=== PATIENT | female | born 1950 | race Caucasian/White ===

== ENCOUNTER 2020-06-08 10:32 | Emergency (ER) | payer OTHER ==
[2020-06-08 14:49] LABS: Absolute Lymphocytes (CBC) 0.9 K/uL (0.7-4.9); Basophils % 0.5 % (0-1.3); Hematocrit 40.1 % (36.0-45.0); Lymphocytes % 13.9 % (15.3-44.8); MPV 8.9 fL (7.6-11.3); RBC Red Blood Cell Count 4.31 M/uL (3.86-4.86)
[2020-06-08 15:18] LABS: AST/SGOT 198 U/L (15-37); Albumin 3.1 g/dL (3.4-5.0); Alkaline Phosphatase 499 U/L (45-117); BUN Blood Urea Nitrogen 15 mg/dL (7-18); Bicarbonate 28 mmol/L (21-32); Bilirubin Direct 6.9 mg/dL (0-0.2); Bilirubin Total 8.1 mg/dL (0.2-1.0); Glucose Level 109 mg/dL (74-106); Lipase 144 U/L (73-393); Potassium 3.2 mmol/L (3.5-5.1); Protein, Total 7.5 g/dL (6.4-8.2); Sodium Level 141 mmol/L (136-145)
[2020-06-08 15:21] LABS: ALT/SGPT 316 U/L (12-78)
--- NOTE | 2020-06-08 16:20 | RAD REPORT ---
EXAM DESCRIPTION: CT - Abdomen Pelvis W Contrast - 06/08/2020 4:04 pm CLINICAL HISTORY: Abdominal pain/elevated liver function test enzymes COMPARISON: none. TECHNIQUE: Computed axial tomography of the abdomen pelvis was obtained. 100 cc Isovue-300 was admin istered intravenously. Oral contrast was not requested which limits evaluation of bowel. All CT scans are performed using dose optimization technique as appropriate and may include automated exposure control or mA/KV adjustment according to patient size. FINDINGS: A 33 millimeter pancreatic head mass. The common bile duct is dilated. There is moderate d ilatation of the intrahepatic biliary tree. The more distal pancreas appears atrophic with mild dilat ation of pancreatic duct. Gallbladder is distended. Spleen, adrenals kidneys appear unremarkable. No evidence diverticulitis. No omental/mesenteric nodules IMPRESSION: A 33 millimeter pancreatic mass probably neoplasm. The common bile duct is obstructed.
--- NOTE | 2020-06-08 16:47 | ER ---
Nurse's Notes [facility] Name: Valarie Morris Age: 69 yrs Sex: Female : 1950 Arrival Date: 06/08/2020 Time: 10:39 Bed 14 Private MD: Diagnosis: Pancreatic Head Mass;Obstruction of Common Bile Duct;Abnormal results of liver function studies Presentation: 06/08 10:52 Chief complaint: Patient states: "I started with itching all over and then I had aa5 diarrhea for about 4 days but it went away and I haven't had diarrhea for a couple of days". Pt reports generalized weakness and decreased appetite. 10:52 Coronavirus screen: At this time, the client does not indicate any symptoms associated aa5 with coronavirus-19. Ebola Screen: Patient negative for fever greater than or equal to 101.5 degrees Fahrenheit, and additional compatible Ebola Virus Disease symptoms. Initial Sepsis Screen: Does the patient meet any 2 criteria? No. Patient's initial sepsis screen is negative. Does the patient have a suspected source of infection? No. Patient's initial sepsis screen is negative. Risk Assessment: Do you want to hurt yourself or someone else? Patient reports no desire to harm self or others. Onset of symptoms was May 2020. 10:52 Acuity: LAN 3 aa5 10:52 Method Of Arrival: Ambulatory aa5 Historical: - Allergies: 10:57 Band-Aid; aa5 - PMHx: 10:57 None; aa5 - PSHx: 10:57 Tubal ligation; skin cancer; aa5 - Immunization history:: Client reports receiving the 2nd dose of the Covid vaccine, Date received: June 07, 2020. - Social history:: Smoking status: Patient denies any tobacco usage or history of. Screenin:50 Abuse screen: Denies threats or abuse. Denies injuries from another. Nutritional ca1 screening: No deficits noted. Tuberculosis screening: No symptoms or risk factors identified. Fall Risk IV access (20 points). Assessment: 13:50 General: Appears in no apparent distress. comfortable, Behavior is calm, cooperative, ca1 appropriate for age. Pain: Denies pain. Neuro: Level of Consciousness is awake, alert, obeys commands. Cardiovascular: Heart tones S1 S2 present Capillary refill < 3 seconds Patient's skin is warm and dry. Respiratory: Airway is patent Respiratory effort is even, unlabored, Respiratory pattern is regular, symmetrical, Breath sounds are clear bilaterally. GI: Abdomen is round non-distended, Bowel sounds present X 4 quads. Abd is soft and non tender X 4 quads. Reports diarrhea, for 3 - 4 days, but has not had diarrhea in the last 2 days. : No signs and/or symptoms were reported regarding the genitourinary system. EENT: No signs and/or symptoms were reported regarding the EENT system. Derm: Skin is intact, is healthy with good turgor, Skin is dry, Skin is icteric, jaundiced, Skin temperature is warm. Musculoskeletal: Circulation, motion, and sensation intact. Capillary refill < 3 seconds. 15:09 Reassessment: Patient appears in no apparent distress at this time. Patient and/or ca1 family updated on plan of care and expected duration. Pain level reassessed. Patient is alert, oriented x 3, equal unlabored respirations, skin warm/dry/pink. 16:18 Reassessment: Patient appears in no apparent distress at this time. Patient and/or ca1 family updated on plan of care and expected duration. Pain level reassessed. Patient is alert, oriented x 3, equal unlabored respirations, skin warm/dry/pink. 17:20 Reassessment: Patient appears in no apparent distress at this time. Patient and/or ca1 family updated on plan of care and expected duration. Pain level reassessed. Patient is alert, oriented x 3, equal unlabored respirations, skin warm/dry/pink. 18:24 Reassessment: Patient appears in no apparent distress at this time. Patient and/or ca1 family updated on plan of care and expected duration. Pain level reassessed. Patient is alert, oriented x 3, equal unlabored respirations, skin warm/dry/pink. 18:49 Reassessment: Called for report. Receiving facility requested a call back after shift ca1 change at 191. Vital Signs: 10:52 BP 152 / 96; Pulse 77; Resp 18 S; Temp 98.0(O); Pulse Ox 100% on R/A; Weight 80.74 kg aa5 (R); Height 5 ft. 4 in. (162.56 cm) (R); Pain 0/10; 15:09 BP 113 / 55; Pulse 55; Resp 16 S; Pulse Ox 100% on R/A; ca1 16:19 BP 147 / 58; Pulse 61; Resp 17 S; Pulse Ox 100% on R/A; ca1 17:00 BP 149 / 88; Pulse 77; Resp 16 S; Pulse Ox 100% on R/A; ca1 18:00 BP 136 / 80; Pulse 65; Resp 16 S; Pulse Ox 100% on R/A; ca1 19:00 BP 118 / 59; Pulse 65; Resp 16; Pulse Ox 96% ; sf 10:52 Body Mass Index 30.55 (80.74 kg, 162.56 cm) aa5 ED Course: 10:39 Patient arrived in ED. mr 10:52 Arm band placed on. aa5 10:55 Triage completed. aa5 13:44 Lai Bean PA is PHCP. cp 13:44 Gus Shah MD is Attending Physician. cp 13:46 Tahira Alcala, SARAH is Primary Nurse. ca1 13:50 Patient has correct armband on for positive identification. Bed in low position. Call ca1 light in reach. Side rails up X 1. Pulse ox on. NIBP on. 13:50 Warm blanket given. ca1 14:28 Initial lab(s) drawn, by dc, sent to lab. Inserted saline lock: 20 gauge in left ca1 antecubital area, using aseptic technique. Blood collected. 16:29 Hepatitis Panel Sent. ca1 20:12 No provider procedures requiring assistance completed. Patient transferred, IV remains sf in place. Administered Medications: 17:06 Drug: NS 0.9% 500 ml Route: IV; Rate: bolus; Site: left antecubital; ca1 18:52 Follow up: Response: No adverse reaction; IV Status: Completed infusion; IV Intake: ca1 500ml 20:08 Follow up: IV Status: Completed infusion; IV Intake: 500ml sf 17:07 Drug: Potassium Effervescent Tablet 50 mEq Route: PO; ca1 18:52 Follow up: Response: No adverse reaction ca1 Intake: 18:52 IV: 500ml; Total: 500ml. ca1 20:08 IV: 500ml; Total: 1000ml. sf Outcome: 16:46 ER care complete, transfer ordered by . cp 20:12 Transferred by ground EMS to [facility], Transfer form completed. sf X-rays sent w/ patient. 20:12 Condition: stable 20:12 Instructed on the need for transfer. 21:03 Patient left the ED. sf Signatures: Liane Orellana Talon, Court, RN RN aa5 Lai Bean PA PA cp Acob, Cheryl RN RN ca1 Rajesh Jessica RN RN sf
--- NOTE | 2020-06-08 16:47 | EDPHYS ---
Physician Documentation [facility] Name: Valarie Morris Age: 69 yrs Sex: Female : 1950 Arrival Date: 06/08/2020 Time: 10:39 Bed 14 Private MD: ED Physician Gus Shah HPI: 06/08 13:58 This 69 yrs old Female presents to ER via Ambulatory with complaints of cp Diarrhea, Itching. 13:59 generalized itching. Onset: The symptoms/episode began/occurred 1 week(s) ago. Severity cp of symptoms: in the emergency department the symptoms are unchanged despite home interventions, has been applying OTC hydrocortisone cream. Patient denies food allergies, denies change in soaps/detergents, denies any recent change in medications. Historical: - Allergies: 10:57 Band-Aid; aa5 - PMHx: 10:57 None; aa5 - PSHx: 10:57 Tubal ligation; skin cancer; aa5 - Immunization history:: Client reports receiving the 2nd dose of the Covid vaccine, Date received: June 07, 2020. - Social history:: Smoking status: Patient denies any tobacco usage or history of. ROS: 14:00 Eyes: Negative for injury, pain, redness, and discharge. cp 14:00 Constitutional: Negative for body aches, chills, fever, poor PO intake. 14:00 ENT: Negative for ear pain, sore throat, difficulty swallowing, difficulty handling secretions. 14:00 Cardiovascular: Negative for chest pain, edema. 14:00 Respiratory: Negative for cough, shortness of breath, wheezing. 14:00 Abdomen/GI: Negative for abdominal pain, nausea, vomiting, and diarrhea. 14:00 Skin: Positive for pruritus, Negative for cellulitis, rash. 14:00 Neuro: Negative for altered mental status, headache, weakness. 14:00 All other systems are negative. Exam: 14:02 Head/Face: Normocephalic, atraumatic. cp 14:02 Constitutional: The patient appears in no acute distress, alert, awake, non-toxic, well developed, well nourished. 14:02 Eyes: Periorbital structures: appear normal, Conjunctiva: normal, no exudate, no injection, Sclera: no appreciated abnormality, Lids and lashes: appear normal, bilaterally. 14:02 ENT: External ear(s): are unremarkable, Nose: is normal, Posterior pharynx: Airway: no evidence of obstruction, patent. 14:02 Chest/axilla: Inspection: normal. 14:02 Cardiovascular: Rate: normal, Rhythm: regular. 14:02 Respiratory: the patient does not display signs of respiratory distress, Respirations: normal, no use of accessory muscles, no retractions, labored breathing, is not present, Breath sounds: are clear throughout, no decreased breath sounds. 14:02 Abdomen/GI: Inspection: abdomen appears normal. 14:02 Skin: no rash present. 14:02 Neuro: Orientation: to person, place \\T\\ time. Mentation: is normal. Vital Signs: 10:52 BP 152 / 96; Pulse 77; Resp 18 S; Temp 98.0(O); Pulse Ox 100% on R/A; Weight 80.74 kg aa5 (R); Height 5 ft. 4 in. (162.56 cm) (R); Pain 0/10; 15:09 BP 113 / 55; Pulse 55; Resp 16 S; Pulse Ox 100% on R/A; ca1 16:19 BP 147 / 58; Pulse 61; Resp 17 S; Pulse Ox 100% on R/A; ca1 17:00 BP 149 / 88; Pulse 77; Resp 16 S; Pulse Ox 100% on R/A; ca1 18:00 BP 136 / 80; Pulse 65; Resp 16 S; Pulse Ox 100% on R/A; ca1 19:00 BP 118 / 59; Pulse 65; Resp 16; Pulse Ox 96% ; sf 10:52 Body Mass Index 30.55 (80.74 kg, 162.56 cm) aa5 MDM: 13:49 Patient medically screened. cp 14:00 Differential Diagnosis cholecystitis, choledocholithiasis, allergic reaction. cp 16:35 Data reviewed: vital signs, nurses notes, lab test result(s), radiologic studies, CT scan, I have discussed the patient's presentation/case with the attending Emergency Department Physician;. 17:00 Physician consultation: was contacted at 16:45, regarding regarding transfer, to [facility]. patient's condition, accepting physician will be DR Kelly. 06/08 13:56 Order name: Basic Metabolic Panel; Complete Time: 15:39 06/08 15:39 Interpretation: Normal except: K 3.2; GLUC 109. 06/08 13:56 Order name: CBC with Diff; Complete Time: 15:39 06/08 15:39 Interpretation: Normal except: VIDAL% 75.4; LYM% 13.9. 06/08 13:56 Order name: Hepatic Function; Complete Time: 15:39 06/08 13:56 Order name: Lipase; Complete Time: 15:39 06/08 15:55 Order name: Hepatitis Panel 06/08 17:01 Order name: COVID-19 : Document "Date of Symptom Onset" if Symptomatic. 06/08 13:56 Order name: IV Saline Lock; Complete Time: 14:28 06/08 15:47 Order name: CT Abd/Pelvis - IV Contrast Only 06/08 15:47 Order name: US Abdomen Limited: liver and gallbladder 06/08 16:21 Order name: CT; Complete Time: 16:34 [facility] 06/08 17:36 Order name: CORONAVIRUS [facility] 06/08 18:32 Order name: SARS-COV-2 RT PCR; Complete Time: 19:11 [facility] 06/08 19:12 Interpretation: Results reviewed. 06/08 13:56 Order name: Labs collected and sent; Complete Time: 14:28 cp Administered Medications: 17:06 Drug: NS 0.9% 500 ml Route: IV; Rate: bolus; Site: left antecubital; ca1 18:52 Follow up: Response: No adverse reaction; IV Status: Completed infusion; IV Intake: ca1 500ml 20:08 Follow up: IV Status: Completed infusion; IV Intake: 500ml sf 17:07 Drug: Potassium Effervescent Tablet 50 mEq Route: PO; ca1 18:52 Follow up: Response: No adverse reaction ca1 Disposition: 06/08/20 16:[address] [facility]. Diagnosis are Pancreatic Head Mass, Obstruction of Common Bile Duct, Abnormal results of liver function studies. - Reason for transfer: Higher level of care. - Accepting physician is DR Kelly. - Condition is Stable. - Problem is new. - Symptoms have improved. Addendum: 06/10/2020 19:03 Co-signature as Attending Physician, Gus Shah MD. r n Signatures: Dispatcher [employer] EDGus Cruz MD MD rn Calderon, Audri, RN RN aa5 Lai Bean PA PA cp Acroseann, Tahira RN RN ca1 Rajesh Jessica RN RN sf Corrections: (The following items were deleted from the chart) 03 16:49 16:46 06/08/2020 16:[address] [facility]. cp Diagnosis is Malignant neoplasm of pancreatic duct. Reason for transfer: Higher level of care. Accepting physician is Doctor. Condition is Stable. Problem is new. Symptoms have improved. cp 17:02 16:49 06/08/2020 16:[address] [facility]. cp Diagnosis is Pancreatic Head Mass; Obstruction of Common Bile Duct; Abnormal results of liver function studies. Reason for transfer: Higher level of care. Accepting physician is Doctor. Condition is Stable. Problem is new. Symptoms have improved. cp 21:03 17:02 06/08/2020 16:[address] [facility]. sf Diagnosis is Pancreatic Head Mass; Obstruction of Common Bile Duct; Abnormal results of liver function studies. Reason for transfer: Higher level of care. Accepting physician is DR Kelly. Condition is Stable. Problem is new. Symptoms have improved. cp
[2020-06-08] MEDS ORDERED: NA CHLORIDE 0.9% 500 ML ONE (17:18)
[2020-06-08] MEDS ORDERED: POTASSIUM 25 MEQ EFFERV TAB ONE (17:18)
[2020-06-09 00:53] VITALS: TEMP 98
[2020-06-09 01:00] VITALS: BP 118/59; O2SAT 96
[2020-06-14 03:18] LABS: HBsAG Nonreactive (Nonreactive)
== END 2020-06-08 21:03 | disposition short-term general hospital (02) ==
LOC: ER 10:32
DX: K83.1 Obstruction of bile duct (principal); K86.89 Other specified diseases of pancreas; R94.5 Abnormal results of liver function studies; Z20.822 Contact with and (suspected) exposure to COVID-19; Z85.828 Personal history of other malignant neoplasm of skin; Z91.048 Other nonmedicinal substance allergy status
CPT/HCPCS: 85025; 80048; 36415; 80076; 83690; 80074; 74177; U0003; Q9967; J7040; 96360; 96361; 99285

== ENCOUNTER 2020-12-17 13:22 | Emergency (ER) | payer OTHER ==
[2020-12-17 14:16] LABS: Absolute Lymphocytes (CBC) 0.2 K/uL (0.7-4.9); Basophils % 0.3 % (0-1.3); Hematocrit 39.7 % (36.0-45.0); Lymphocytes % 5.5 % (15.3-44.8); MPV 7.4 fL (7.6-11.3); RBC Red Blood Cell Count 3.81 M/uL (3.86-4.86)
[2020-12-17] MEDS ORDERED: ONDANSETRON 4 MG/2 ML VIAL ONE (14:20)
[2020-12-17] MEDS ORDERED: NA CHLORIDE 0.9% 1,000 ML ONE (14:21)
[2020-12-17 14:41] LABS: ALT/SGPT 24 U/L (12-78); AST/SGOT 39 U/L (15-37); Albumin 2.6 g/dL (3.4-5.0); Alkaline Phosphatase 91 U/L (45-117); BUN Blood Urea Nitrogen 16 mg/dL (7-18); Bicarbonate 23 mmol/L (21-32); Bilirubin Direct 0.4 mg/dL (0-0.2); Bilirubin Total 1.1 mg/dL (0.2-1.0); Glucose Level 152 mg/dL (74-106); Lipase 13 U/L (73-393); Protein, Total 6.8 g/dL (6.4-8.2); Sodium Level 139 mmol/L (136-145)
[2020-12-17 14:45] LABS: Potassium 2.8 mmol/L (3.5-5.1)
[2020-12-17] MEDS ORDERED: POTASSIUM CL SA 10 MEQ TAB PO ONE (15:36)
[2020-12-17] MEDS ORDERED: KCL 20 MEQ/100 mL IVPB 20 MEQ/100 ML BAG IV ONE (15:36)
[2020-12-17] MEDS ORDERED: LOPERAMIDE HCL 2 MG CAPSULE ONE (15:36)
[2020-12-17] MEDS ORDERED: NA CHLORIDE 0.9% 250 ML ONE (15:40)
--- NOTE | 2020-12-17 16:46 | ER ---
Nurse's Notes [facility] Name: Valarie Morris Age: 69 yrs Sex: Female : 1950 Arrival Date: 12/17/2020 Time: 13:27 Bed 2 Private MD: Diagnosis: Vomiting;Diarrhea, unspecified;Hypokalemia Presentation: 12/17 13:31 Chief complaint: Patient states: NVD x 3 days. Hx of Pancreatic Cancer, unable to keep [facility] home meds down. Coronavirus screen: Vaccine status: Patient reports receiving the 2nd dose of the covid vaccine. Client denies travel out of the [place] in the last 14 days. Ebola Screen: Patient negative for fever greater than or equal to 101.5 degrees Fahrenheit, and additional compatible Ebola Virus Disease symptoms Patient denies exposure to infectious person. Patient denies travel to an Ebola-affected area in the 21 days before illness onset. Initial Sepsis Screen: Does the patient meet any 2 criteria? HR > 90 bpm. Does the patient have a suspected source of infection? No. Patient's initial sepsis screen is negative. Risk Assessment: Do you want to hurt yourself or someone else? Patient reports no desire to harm self or others. Onset of symptoms was December 14, 2020. 13:31 Method Of Arrival: EMS: [facility] 13:31 Acuity: LAN 3 5 Triage Assessment: 13:42 General: Appears uncomfortable, Behavior is cooperative. Pain: Complains of pain in ch5 right upper quadrant Quality of pain is described as sharp. GI: Reports diarrhea, nausea, vomiting, since 12/14/2020. Historical: - Allergies: 14:04 No Known Allergies; jd3 - PMHx: 14:04 pancreatic cancer; jd3 - Immunization history:: Adult Immunizations up to date. - Social history:: Smoking status: Patient denies any tobacco usage or history of. Screenin:48 Abuse screen: Denies threats or abuse. Denies injuries from another. Nutritional 5 screening: No deficits noted. Tuberculosis screening: No symptoms or risk factors identified. Fall Risk Fall in past 12 months (25 points). 13:49 Abuse screen: Denies threats or abuse. Nutritional screening: No deficits noted. jd3 Tuberculosis screening: No symptoms or risk factors identified. Fall Risk Ambulatory Aid- None/Bed Rest/Nurse Assist (0 pts). Gait- Normal/Bed Rest/Wheelchair (0 pts) Mental Status- Oriented to own ability (0 pts). Total Gonzalez Fall Scale indicates No Risk (0-24 pts). Assessment: 13:47 Reassessment: No changes from previously documented assessment. [facility] 13:47 General: Appears uncomfortable, Behavior is calm, cooperative, appropriate for age. jd3 Pain: Denies pain. Neuro: Level of Consciousness is awake, alert, obeys commands, Oriented to person, place, time, situation. Cardiovascular: Denies chest pain, Capillary refill < 3 seconds Patient's skin is warm and dry. Rhythm is regular. Respiratory: Airway is patent Respiratory effort is even, unlabored, Respiratory pattern is regular, symmetrical. GI: Abdomen is non-distended, Stools are reported to be diarrhea. Last BM at 13:49. Abd is soft and non tender X 4 quads. Reports diarrhea, nausea, vomiting. : No signs and/or symptoms were reported regarding the genitourinary system. EENT: No signs and/or symptoms were reported regarding the EENT system. Derm: Skin is intact, Skin is dry, Skin is pale, Skin temperature is warm. Musculoskeletal: No signs and/or symptoms reported regarding the musculoskeletal system. 15:20 Reassessment: Patient and/or family updated on plan of care and expected duration. Pain jd3 level reassessed. Patient is alert, oriented x 3, equal unlabored respirations, skin warm/dry/pink. Patient states feeling better. 16:43 Reassessment: Patient and/or family updated on plan of care and expected duration. Pain jd3 level reassessed. Patient is alert, oriented x 3, equal unlabored respirations, skin warm/dry/pink. 17:48 Reassessment: Patient appears in no apparent distress at this time. Patient and/or jd3 family updated on plan of care and expected duration. Pain level reassessed. Patient is alert, oriented x 3, equal unlabored respirations, skin warm/dry/pink. reported understanding of discharge instructions. assisted pt to vehicle with family via wheelchair. Patient states feeling better. Vital Signs: 13:31 Pulse 106; Resp 20; Temp 97.2; Pulse Ox 95% on R/A; Weight 65.77 kg; Height 5 ft. 4 in. ch5 (162.56 cm); Pain 4/10; 13:46 BP 123 / 84; Pulse 94; Resp 14; Temp 98; Pulse Ox 100% on R/A; ch5 15:21 BP 119 / 67; Pulse 88; Resp 15 S; Pulse Ox 100% on R/A; jd3 16:43 BP 104 / 64; Pulse 88; Resp 16 S; Pulse Ox 96% on R/A; jd3 13:31 Body Mass Index 24.89 (65.77 kg, 162.56 cm) 5 ED Course: 13:27 Patient arrived in ED. eb 13:31 Cj Taylor, RN is Primary Nurse. ch5 13:42 Triage completed. ch5 13:42 Arm band placed on right wrist. 5 13:46 Primary Nurse role handed off by Cj Taylor, RN jd3 13:46 Brian Gomez, SARAH is Primary Nurse. jd3 13:47 Carlitos Workman MD is Attending Physician. kdr 13:49 Patient has correct armband on for positive identification. Bed in low position. Call jd3 light in reach. Side rails up X2. Adult w/ patient. youth nutritional monitor on. Pulse ox on. NIBP on. 13:50 ED physician to see patient. jd3 14:02 No provider procedures requiring assistance completed. ch5 14:05 Inserted saline lock: 22 gauge in right antecubital area, using aseptic technique. jd3 Blood collected. 16:44 ED physician to see patient. jd3 17:49 IV discontinued, intact, bleeding controlled, No redness/swelling at site. Pressure jd3 dressing applied. Administered Medications: 14:05 Drug: Zofran (Ondansetron) 4 mg Route: IVP; Site: right antecubital; jd3 15:00 Follow up: Response: No adverse reaction jd3 14:05 Drug: NS 0.9% 500 ml Route: IV; Rate: bolus; Site: right antecubital; jd3 17:49 Follow up: Response: No adverse reaction; IV Status: Completed infusion jd3 15:20 Drug: Imodium Liquid 2 mg Route: PO; jd3 17:49 Follow up: Response: No adverse reaction jd3 15:20 Drug: Potassium Chloride 20 mEq Route: IV; Rate: calculated rate; Site: right jd3 antecubital; 17:49 Follow up: Response: No adverse reaction; IV Status: Completed infusion jd3 15:20 Drug: Potassium Chloride 40 mEq Route: PO; jd3 17:49 Follow up: Response: No adverse reaction jd3 Outcome: 16:45 Discharge ordered by . kdr 17:48 Discharged to home via wheelchair, with family. jd3 17:48 Condition: stable 17:48 Discharge instructions given to patient, family, Instructed on discharge instructions, follow up and referral plans. medication usage, Demonstrated understanding of instructions, follow-up care, medications, Prescriptions given X 1. 17:49 Patient left the ED. jd3 Signatures: Carlitos Workman MD MD kdr Brian Gomez RN RN jd3 Mary Orr Christopher, SARAH RN ch5 Corrections: (The following items were deleted from the chart) 14:05 13:42 Allergies: Band-aid [Inactive]; ch5 jd3
--- NOTE | 2020-12-17 16:46 | EDPHYS ---
Physician Documentation [facility] Name: Valarie Morris Age: 69 yrs Sex: Female : 1950 Arrival Date: 12/17/2020 Time: 13:27 Bed 2 Private MD: ED Physician Carlitos Workmna HPI: 12/17 16:47 This 69 yrs old Female presents to ER via EMS with complaints of Vomiting and kdr diarrhea. 16:47 The patient presents to the emergency department with nausea, that is mild, vomiting, kdr that is intermittent, diarrhea, that is intermittent. Onset: The symptoms/episode began/occurred gradually, 2 day(s) ago. Possible causes: unknown, Patient is currently getting chemo and radiation for pancreatic cancer. The symptoms are aggravated by food , The symptoms are alleviated by nothing. Associated signs and symptoms: Pertinent positives: anorexia, diarrhea, nausea, vomiting, Pertinent negatives: abdominal pain. Severity of symptoms: At their worst the symptoms were mild moderate just prior to arrival, in the emergency department the symptoms are unchanged. The patient has not experienced similar symptoms in the past. The patient has been recently seen by a physician: Routine care for her pancreatic cancer. Historical: - Allergies: 14:04 No Known Allergies; jd3 - PMHx: 14:04 pancreatic cancer; jd3 - Immunization history:: Adult Immunizations up to date. - Social history:: Smoking status: Patient denies any tobacco usage or history of. ROS: 16:47 Constitutional: Negative for fever, chills, and weight loss, Eyes: Negative for injury, kdr pain, redness, and discharge, ENT: Negative for injury, pain, and discharge, Neck: Negative for injury, pain, and swelling, Cardiovascular: Negative for chest pain, palpitations, and edema, Respiratory: Negative for shortness of breath, cough, wheezing, and pleuritic chest pain, Back: Negative for injury and pain, : Negative for injury, bleeding, discharge, and swelling, MS/Extremity: Negative for injury and deformity, Skin: Negative for injury, rash, and discoloration, Neuro: Negative for headache, weakness, numbness, tingling, and seizure activity. Psych: Negative for depression, anxiety, suicide ideation, homicidal ideation, and hallucinations, Allergy/Immunology: Negative for hives, rash, and allergies, Endocrine: Negative for neck swelling, polydipsia, polyuria, polyphagia, and marked weight changes, Hematologic/Lymphatic: Negative for swollen nodes, abnormal bleeding, and unusual bruising. 16:47 Abdomen/GI: Positive for nausea and vomiting, nausea, vomiting, and diarrhea, Negative for abdominal cramps, abdominal distension, anorexia, dysphagia, hematemesis, black/tarry stool, rectal pain, rectal bleeding, bowel incontinence. Exam: 16:47 Constitutional: This is a well developed, well nourished patient who is awake, alert, kdr and in no acute distress. Head/Face: Normocephalic, atraumatic. Eyes: Pupils equal round and reactive to light, extra-ocular motions intact. Lids and lashes normal. Conjunctiva and sclera are non-icteric and not injected. Cornea within normal limits. Periorbital areas with no swelling, redness, or edema. Neck: Trachea midline, no thyromegaly or masses palpated, and no cervical lymphadenopathy. Supple, full range of motion without nuchal rigidity, or vertebral point tenderness. No Meningismus. Chest/axilla: Normal chest wall appearance and motion. Nontender with no deformity. No lesions are appreciated. Cardiovascular: Regular rate and rhythm with a normal S1 and S2. No gallops, murmurs, or rubs. Normal PMI, no JVD. No pulse deficits. Respiratory: Lungs have equal breath sounds bilaterally, clear to auscultation and percussion. No rales, rhonchi or wheezes noted. No increased work of breathing, no retractions or nasal flaring. Abdomen/GI: Soft, non-tender, with normal bowel sounds. No distension or tympany. No guarding or rebound. No evidence of tenderness throughout. Back: No spinal tenderness. No costovertebral tenderness. Full range of motion. Skin: Warm, dry with normal turgor. Normal color with no rashes, no lesions, and no evidence of cellulitis. MS/ Extremity: Pulses equal, no cyanosis. Neurovascular intact. Full, normal range of motion. Neuro: Awake and alert, GCS 15, oriented to person, place, time, and situation. Cranial nerves II-XII grossly intact. Motor strength 5/5 in all extremities. Sensory grossly intact. Cerebellar exam normal. Normal gait. Psych: Awake, alert, with orientation to person, place and time. Behavior, mood, and affect are within normal limits. Vital Signs: 13:31 Pulse 106; Resp 20; Temp 97.2; Pulse Ox 95% on R/A; Weight 65.77 kg; Height 5 ft. 4 in. ch5 (162.56 cm); Pain 4/10; 13:46 BP 123 / 84; Pulse 94; Resp 14; Temp 98; Pulse Ox 100% on R/A; ch5 15:21 BP 119 / 67; Pulse 88; Resp 15 S; Pulse Ox 100% on R/A; jd3 16:43 BP 104 / 64; Pulse 88; Resp 16 S; Pulse Ox 96% on R/A; jd3 13:31 Body Mass Index 24.89 (65.77 kg, 162.56 cm) ch5 MDM: 16:45 Patient medically screened. kdr 16:47 Data reviewed: vital signs, nurses notes, lab test result(s). Counseling: I had a kdr detailed discussion with the patient and/or guardian regarding: the historical points, exam findings, and any diagnostic results supporting the discharge/admit diagnosis, lab results, the need for outpatient follow up. ED course: The patient was able to take fluids without problem. I discussed with her the laboratory findings. We discussed the fact that no abdominal CT had been performed. This had not been done because she was and having little to no pain in her abdomen. Patient states she was feeling much better with the interventions given. She was happy with the care provided and the plan for discharge with follow-up. She had sufficient quantities of her nausea medicine at home. She also has a follow-up scheduled on Saturday with her oncologist. 12/17 13:48 Order name: Basic Metabolic Panel; Complete Time: 14:52 kdr 12/17 13:48 Order name: CBC with Diff; Complete Time: 14:52 kdr 12/17 13:48 Order name: Hepatic Function; Complete Time: 14:52 kdr 12/17 13:48 Order name: Lipase; Complete Time: 14:52 kdr 12/17 13:48 Order name: IV Saline Lock; Complete Time: 14:05 kdr 12/17 13:48 Order name: Labs collected and sent; Complete Time: 14:05 kdr Administered Medications: 14:05 Drug: Zofran (Ondansetron) 4 mg Route: IVP; Site: right antecubital; jd3 15:00 Follow up: Response: No adverse reaction jd3 14:05 Drug: NS 0.9% 500 ml Route: IV; Rate: bolus; Site: right antecubital; jd3 17:49 Follow up: Response: No adverse reaction; IV Status: Completed infusion jd3 15:20 Drug: Imodium Liquid 2 mg Route: PO; jd3 17:49 Follow up: Response: No adverse reaction jd3 15:20 Drug: Potassium Chloride 20 mEq Route: IV; Rate: calculated rate; Site: right j antecubital; 17:49 Follow up: Response: No adverse reaction; IV Status: Completed infusion jd3 15:20 Drug: Potassium Chloride 40 mEq Route: PO; jd3 17:49 Follow up: Response: No adverse reaction jd3 Disposition Summary: 12/17/20 16:45 Discharge Ordered Location: Home kdr Problem: new kdr Symptoms: have improved kdr Condition: Stable kdr Diagnosis - Vomiting kdr - Diarrhea, unspecified kdr - Hypokalemia kdr Followup: kdr - With: Private Physician - When: 2 - 3 days - Reason: If symptoms return, Further diagnostic work-up, Recheck today's complaints, Continuance of care, Re-evaluation by your physician Discharge Instructions: - Discharge Summary Sheet kdr - Nausea and Vomiting, Adult, [id number] kdr - Diarrhea, Adult, [id number] kdr - Hypokalemia kdr Forms: - Medication Reconciliation Form kdr - Thank You Letter kdr Prescriptions: - Pepcid 20 mg Oral Tablet - take 1 tablet by ORAL route once daily for 10 days; 10 tablet; Refills: 0, kdr Product Selection Permitted Signatures: Dispatcher [employer] Carlitos Monzon MD MD kdr Brian Gomez RN RN jd3 Cj Taylor RN RN ch5 Corrections: (The following items were deleted from the chart) 14:05 13:42 Allergies: Band-aid [Inactive]; ch5 jd3
[2020-12-17 18:22] VITALS: TEMP 98
[2020-12-17 18:25] VITALS: BP 104/64; O2SAT 96
== END 2020-12-17 17:49 | disposition home or self-care (01) ==
LOC: ER 13:22
DX: E87.6 Hypokalemia (principal); R19.7 Diarrhea, unspecified; C25.9 Malignant neoplasm of pancreas, unspecified
CPT/HCPCS: 96365; 96361; 85025; 80048; 36415; 80076; 83690; 96375; 99284; 96366; J3480; J7050; J7030; J2405